=== PATIENT | female | born 1940 | race Caucasian/White ===

== ENCOUNTER 2018-01-09 15:57 | Observation (INO) | payer OTHER, MEDICAID ==
[2018-01-09] VITALS (14 sets, daily range): BP systolic 99–134; BP diastolic 54–85; PULSE 58–154; RESP 16–30; TEMP 98.5–98.9; O2SAT 80–99
[~2018-01-09] VITALS: Ht 152.4 cm; Wt 67.3 kg
[~2018-01-09 15:57] MED LIST: AMLO5TAB22 PO; ASPI81TA11 PO; BUSP5TAB3 PO; CARV3.12 PO; CITA20TA4 PO; DIGO50SO PO; EQUATE; HYZA100T2 PO; LEVO.15 PO; OXYC-360 PO; PRIL10CA PO; VITA400C28 PO
[2018-01-09] MEDS ORDERED: DILTIAZEM HCL 25 MG/5 ML VIAL IV ONE ×2 (16:30→18:45)
[2018-01-09 16:31] LABS: AUTOMATED NEUTROPHIL # 3.2 TH/MM3 (1.8-7.7); BASOPHIL # 0.1 TH/MM3 (0-0.2); EOSINOPHIL # 0.2 TH/MM3 (0-0.4); EOSINOPHIL % 3.4 % (0.0-4.0); HEMATOCRIT 32.3 % (35.0-46.0); HEMOGLOBIN 10.2 GM/DL (11.6-15.3); LYMPH % 23.6 % (9.0-44.0); LYMPHOCYTE # 1.2 TH/MM3 (1.0-4.8); MEAN CELL VOLUME 75.4 FL (80.0-100.0); MEAN CORPUSCULAR HEMOGLOBIN 23.9 PG (27.0-34.0); MEAN CORPUSCULAR HGB CONC 31.6 % (32.0-36.0); MEAN PLATELET VOLUME 8.8 FL (7.0-11.0); MONO % 7.4 % (0.0-8.0); MONOCYTE # 0.4 TH/MM3 (0-0.9); NEUT % 64.6 % (16.0-70.0); PLATELET COUNT 98 TH/MM3 (150-450); RED BLOOD COUNT 4.28 MIL/MM3 (4.00-5.30); RED CELL DISTRIBUTION WIDTH 15.2 % (11.6-17.2); WHITE BLOOD COUNT 5.1 TH/MM3 (4.0-11.0)
[2018-01-09 16:43] LABS: CHLORIDE 102 MEQ/L (98-107); SODIUM (NA) 135 MEQ/L (136-145)
[2018-01-09 16:45] LABS: INTERNATIONAL NORMALIZED RATIO 1.1 RATIO; PROTHROMBIN TIME - PATIENT 11.3 SEC (9.8-11.6)
--- NOTE | 2018-01-09 16:45 | RADRPT ---
EXAM DATE/TIME: 01/09/2018 16:29 [place] COMPARISON: CHEST SINGLE AP, May 30, 2016, 19:24. INDICATIONS : Heart palpitations. MEDICAL HISTORY : Hypertension. Chronic obstructive pulmonary disease. SURGICAL HISTORY : None. ENCOUNTER: Initial ACUITY: 3 days PAIN SCORE: 0/10 LOCATION: Bilateral chest FINDINGS: A single view of the chest demonstrates the lungs to be hyperinflated with stable pleural-parenchymal scarring laterally and inferiorly in the left hemithorax. Old fracture deformities in the left poste rolateral ribs. Osseous structures are otherwise intact. Heart size is normal. CONCLUSION: 1. Stable hyperinflation characteristic of some degree of COPD. 2. Stable pleural parenchymal scarring laterally and inferiorly in the left hemithorax. No superimpos ed acute infiltrate. Renaldo Felton MD on January 09, 2018 at 16:42 Board Certified Radiologist. This report was verified electronically.
[2018-01-09 16:46] LABS: ALBUMIN 3.6 GM/DL (3.4-5.0); BICARBONATE 25.9 MEQ/L (21.0-32.0); GLUCOSE,RANDOM 89 MG/DL (74-106)
[2018-01-09 16:47] LABS: BLOOD UREA NITROGEN 15 MG/DL (7-18)
[2018-01-09 16:49] LABS: ALT (GPT) 14 U/L (10-53); AST (GOT) 15 U/L (15-37)
[2018-01-09] MEDS: SODIUM CHLORIDE 0.9% FLUSH 10 ML FLUSH IVF PRN ×3 (16:49→18:50)
[2018-01-09 16:50] LABS: GLOMERULAR FILTRATION RATE 48 ML/MIN (>89)
[2018-01-09 16:51] LABS: TOTAL BILIRUBIN ADULT 0.2 MG/DL (0.2-1.0); TOTAL PROTEIN 8.2 GM/DL (6.4-8.2)
[2018-01-09 16:52] LABS: ALKALINE PHOSPHATASE 85 U/L (45-117)
[2018-01-09 16:55] LABS: TROPONIN I LESS THAN 0.02 NG/ML (0.02-0.05)
[2018-01-09] MEDS ORDERED: ASPI81TA23 PO (17:12)
[2018-01-09] MEDS ORDERED: LEVO150T7 PO (17:12)
[2018-01-09] MEDS ORDERED: AMLO5TAB2 PO (17:12)
[2018-01-09] MEDS ORDERED: DIGO0.25 PO (17:12)
[2018-01-09] MEDS ORDERED: CARV3.12 PO (17:12)
[2018-01-09] MEDS ORDERED: TRAM50TA PO (17:13)
[2018-01-09] MEDS ORDERED: CITA20TA4 PO (17:15)
[2018-01-09] MEDS ORDERED: HYZA100T2 PO (17:15)
[2018-01-09] MEDS ORDERED: OMEP20TA93 PO (17:15)
[2018-01-09] MEDS ORDERED: VITATAB56 PO (17:17)
[2018-01-09] MEDS ORDERED: DILTIAZEM HCL 25 MG/5 ML VIAL IV PUSH ONE (17:45)
[2018-01-09] MEDS ORDERED: DILTIAZEM INJ 125 MG in SODIUM CHLORIDE 0.9% INJ 100 ML IV PRN (17:45)
--- NOTE | 2018-01-09 18:04 | PD ---
HPI Chief Complaint: Cardiac Complaint Time Seen by Provider: 16:02 Travel History International Travel<30 days: No Contact w/Intl Traveler<30days: No Traveled to known affect area: No History of Present Illness HPI Patient is a 77 year old female presents to the ER for evaluation of tachycardia. She has no complaints. Patient states went for a checkup with a regular physician and found to have heart rate of 140. Her physician sent her here for further evaluation. Duration of the symptoms is unknown. no associated palpitations, sob, chest pain, n/v/d, abdominal pain. No alleviating or exacerbating factors. Has seen Dr. Goff once in the past , has history of atrial fibrillation, on digoxin, states has been taking her medications as prescribed. PFSH Past Medical History Arthritis: Yes (RHEUMATOID) Asthma: No Atrial Fibrillation: Yes Blood Disorders: No Anxiety: Yes Depression: No Heart Rhythm Problems: Yes (afib) Cancer: Yes (UTERINE) Cardiovascular Problems: Yes (cardiac arrest 2005) High Cholesterol: Yes Chemotherapy: No Chest Pain: No Congestive Heart Failure: No Cirrhosis: Yes COPD: Yes Cerebrovascular Accident: No Coronary Artery Disease: Yes Diabetes: No Endocrine: Yes Gastrointestinal Disorders: Yes ("LIVER DAMAGE FROM VIRUS") GERD: Yes Genitourinary: No Headaches: Yes Hiatal Hernia: No Hypertension: Yes Immune Disorder: No Musculoskeletal: Yes (SCIATICA) Neurologic: Yes (SCIATIC NERVE PAIN ON LEFT) Psychiatric: Yes Reproductive: Yes (HYSTERECTOMY) Respiratory: Yes Immunizations Current: Yes Migraines: No Myocardial Infarction: Yes Radiation Therapy: No Seizures: No Sleep Apnea: Yes Thyroid Disease: Yes Ulcer: Yes Tetanus Vaccination: > 5 Years Influenza Vaccination: No ?: Not Menopausal: Yes : 0 Para: 0 Past Surgical History AICD: No Arteriovenous Shunt: No Cholecystectomy: Yes Gynecologic Surgery: Yes (UTERINE CANCER/HYSTERECTOMY 2005) Hysterectomy: Yes Insulin Pump: No Joint Replacement: No Oral Surgery: Yes (TOOTH EXTRACTIONS AGE 23) Pacemaker: No Other Surgery: Yes Social History Alcohol Use: No (OCCASSIONAL) Tobacco Use: No (quit 15 yrs ago) Substance Use: No Allergies-Medications (Allergen,Severity, Reaction): Coded Allergies: aspirin (Unverified Allergy, Severe, 07/16/17) Reported Meds & Prescriptions Reported Meds & Active Scripts Active Reported Vitamin D-400 (Cholecalciferol) 400 Unit Tab 400 Units PO DAILY Hyzaar (Losartan-Hydrochlorothiazide) 100-12.5 Mg Tab 1 Tab PO DAILY Citalopram (Citalopram Hydrobromide) 20 Mg Tab 20 Mg PO DAILY Omeprazole 20 Mg Tab 20 Mg PO DAILY Tramadol (Tramadol HCl) 50 Mg Tab 100 Mg PO Q6H PRN Carvedilol 3.125 Mg Tab 3.125 Mg PO BID Digoxin 0.25 Mg Tab 0.25 Mg PO DAILY Amlodipine (Amlodipine Besylate) 5 Mg Tab 5 Mg PO DAILY Levothyroxine (Levothyroxine Sodium) 150 Mcg Tab 150 Mcg PO DAILY Aspirin EC (Aspirin) 81 Mg Tabdr 81 Mg PO DAILY Review of Systems Except as stated in HPI: all other systems reviewed are Neg Physical Exam Narrative GENERAL: WD/WN in nad SKIN: Warm and dry. HEAD: Atraumatic. Normocephalic. EYES: Pupils equal and round. No scleral icterus. No injection or drainage. ENT: No nasal bleeding or discharge. Mucous membranes pink and moist. NECK: Trachea midline. No JVD. CARDIOVASCULAR: Regular rate and rhythm but tachycardic. No carotid bruits, no MGR. RESPIRATORY: No accessory muscle use. Clear to auscultation. Breath sounds equal bilaterally. GASTROINTESTINAL: Abdomen soft, non-tender, nondistended. Hepatic and splenic margins not palpable. MUSCULOSKELETAL: Extremities without clubbing, cyanosis, or edema. No obvious deformities. NEUROLOGICAL: Awake and alert. No obvious cranial nerve deficits. Motor grossly within normal limits. Five out of 5 muscle strength in the arms and legs. Normal speech. PSYCHIATRIC: Appropriate mood and affect; insight and judgment normal. Data Data Last Documented VS Vital Signs Date Time Temp Pulse Resp B/P (MAP) Pulse Ox O2 Delivery O2 Flow Rate FiO2 01/09/18 19:47 86 18 128/65 (86) 97 Room Air 01/09/18 16:53 3.00 01/09/18 16:32 98.5 Orders Orders Electrocardiogram (01/09/18 16:03) Complete Blood Count With Diff (01/09/18 16:03) Comprehensive Metabolic Panel (01/09/18 16:03) Magnesium (Mg) (01/09/18 16:03) Prothrombin Time / Inr (Pt) (01/09/18 16:03) Act Partial Throm Time (Ptt) (01/09/18 16:03) Troponin I (01/09/18 16:03) Chest, Single Ap (01/09/18 16:03) Ecg Monitoring (01/09/18 16:03) Iv Access Insert/Monitor (01/09/18 16:03) Oximetry (01/09/18 16:03) Oxygen Administration (01/09/18 16:03) Sodium Chloride 0.9% Flush (Ns Flush) (01/09/18 16:15) Thyroid Stimulating Hormone (01/09/18 16:03) Free T3 (01/09/18 16:03) Free Thyroxine (T4) (01/09/18 16:03) Digoxin (01/09/18 16:24) Diltiazem Inj (Cardizem Inj) (01/09/18 16:30) Electrocardiogram (01/09/18 ) Diltiazem Inj (Cardizem Inj) (01/09/18 17:45) Diltiazem Inj (Cardizem Inj) (01/09/18 17:45) Diltiazem Inj (Cardizem Inj) (01/09/18 18:45) Admit Order (Ed Use Only) (01/09/18 ) Place In Observation (01/09/18 ) Vital Signs (Adult) Q4H (01/09/18 20:01) Activity Oob With Assistance (01/09/18 20:01) Retort Feeder Ground Bone / Telemetry .CONTINUOUS (01/09/18 20:01) Diet Heart Healthy (01/10/18 Breakfast) Sodium Chloride 0.9% Flush (Ns Flush) (01/09/18 20:15) Sodium Chloride 0.9% Flush (Ns Flush) (01/09/18 21:00) Acetaminophen (Tylenol) (01/09/18 20:15) Ondansetron Inj (Zofran Inj) (01/09/18 20:15) Basic Metabolic Panel (Bmp) (01/10/18 06:00) Comprehensive Metabolic Panel (01/10/18 06:00) Heparin Inj (Heparin Inj) (01/09/18 21:00) Naloxone Inj (Narcan Inj) (01/09/18 20:15) Docusate Sodium-Senna (Hailey-Colace) (01/09/18 21:00) Magnesium Hydroxide Liq (Milk Of Magnesi (01/09/18 20:15) Sennosides (Senokot) (01/09/18 20:15) Bisacodyl Supp (Dulcolax Supp) (01/09/18 20:15) Lactulose Liq (Lactulose Liq) (01/09/18 20:15) Consult Cardiology (01/09/18 ) Labs Laboratory Tests Test 01/09/18 16:15 White Blood Count 5.1 TH/MM3 Red Blood Count 4.28 MIL/MM3 Hemoglobin 10.2 GM/DL Hematocrit 32.3 % Mean Corpuscular Volume 75.4 FL Mean Corpuscular Hemoglobin 23.9 PG Mean Corpuscular Hemoglobin Concent 31.6 % Red Cell Distribution Width 15.2 % Platelet Count 98 TH/MM3 Mean Platelet Volume 8.8 FL Neutrophils (%) (Auto) 64.6 % Lymphocytes (%) (Auto) 23.6 % Monocytes (%) (Auto) 7.4 % Eosinophils (%) (Auto) 3.4 % Basophils (%) (Auto) 1.0 % Neutrophils # (Auto) 3.2 TH/MM3 Lymphocytes # (Auto) 1.2 TH/MM3 Monocytes # (Auto) 0.4 TH/MM3 Eosinophils # (Auto) 0.2 TH/MM3 Basophils # (Auto) 0.1 TH/MM3 CBC Comment AUTO DIFF Differential Comment AUTO DIFF CONFIRMED Platelet Estimate LOW Platelet Morphology Comment NORMAL Prothrombin Time 11.3 SEC Prothromb Time International Ratio 1.1 RATIO Activated Partial Thromboplast Time 28.8 SEC Blood Urea Nitrogen 15 MG/DL Creatinine 1.10 MG/DL Random Glucose 89 MG/DL Total Protein 8.2 GM/DL Albumin 3.6 GM/DL Calcium Level 9.0 MG/DL Magnesium Level 2.0 MG/DL Alkaline Phosphatase 85 U/L Aspartate Amino Transf (AST/SGOT) 15 U/L Alanine Aminotransferase (ALT/SGPT) 14 U/L Total Bilirubin 0.2 MG/DL Sodium Level 135 MEQ/L Potassium Level 3.8 MEQ/L Chloride Level 102 MEQ/L Carbon Dioxide Level 25.9 MEQ/L Anion Gap 7 MEQ/L Estimat Glomerular Filtration Rate 48 ML/MIN Troponin I LESS THAN 0.02 NG/ML Free Thyroxine 1.37 NG/DL Free Triiodothyronine (T3) pg/dL 2.69 PG/ML Thyroid Stimulating Hormone 3rd Gen 0.229 uIU/ML Digoxin Level 1.1 NG/ML MDM Medical Decision Making Medical Screen Exam Complete: Yes Emergency Medical Condition: Yes Differential Diagnosis Atrial fibrillation, CHF unlikely, ACS unlikely, hyperthyroidism, digoxin toxicity, atrial flutter. Narrative Course patient roomed in the ER, asymptomatic she is in 2:1 atrial flutter at 145-150. Cardizem 20mg Bolus given, rate more controlled. EKG repeated shows atrial fibrillation and no STT changes (reviewed by me). Over the next hour, her rate graeme back to 140 in atrial flutter once again, she then had a short spontaneous conversion to NSR and then back to 2:1 atrial flutter. Cardizem drip started and then later given an additional 20mg Cardizem bolus given and her rate was again better controlled. At this point needing better rate control to prevent CHF and complication she was recommended for admission. She is agreeable. She was discussed with Dr. Albarado for admission. Digoxin level non-toxic. Thyroid levels euthyroid. Procedures Procedure Narrative Aggregate critical care time was 35 minutes. Time to perform other separately billable procedures was not included in the critical care time. My time did not include minutes spent treating any other patients simultaneously or on activities that did not directly contribute to the patient's treatment. The services I provided to this patient were to treat and/or prevent clinically significant deterioration that could result in: , disability, organ failure. I provided critical care services requiring my management, as noted below: Chart data review, documentation time, medication orders and management, vital sign assessments/reviewing monitor data, ordering and reviewing lab tests, ordering and interpreting/reviewing x-rays and diagnostic studies, care of the patient and discussion of the patient with the admitting physicians. Diagnosis Primary Impression: Atrial fibrillation Additional Impression: Atrial fibrillation with RVR Admitting Information Admitting Physician Requests: Admit Condition: Stable Jones Samano MD Jan 09, 2018 18:04
[2018-01-09 18:06] LABS: FREE T3 2.69 PG/ML (2.18-3.98); FREE T4 1.37 NG/DL (0.76-1.46)
[2018-01-09] MEDS ORDERED: BISACODYL 10 MG SUPP RECTAL PRN (20:15)
[2018-01-09] MEDS ORDERED: SODIUM CHLORIDE 0.9% FLUSH 10 ML FLUSH IV FLUSH PRN (20:15)
[2018-01-09] MEDS ORDERED: ONDANSETRON HCL 4 MG/2 ML VIAL IVP PRN (20:15)
[2018-01-09] MEDS ORDERED: LACTULOSE SYRUP 20 GM/30 ML CUP PO PRN (20:15)
[2018-01-09] MEDS ORDERED: MAGNESIUM HYDROXIDE SUSP 30 ML CUP PO PRN (20:15)
[2018-01-09] MEDS ORDERED: NALOXONE HCL 0.4 MG/ML AMP IV PUSH PRN (20:15)
[2018-01-09] MEDS ORDERED: ACETAMINOPHEN 325 MG TAB PO PRN (20:15)
[2018-01-09] MEDS ORDERED: SENNOSIDES 8.6 MG TAB PO PRN (20:15)
[2018-01-09] MEDS: SODIUM CHLORIDE 0.9% FLUSH 10 ML FLUSH IV FLUSH SCH (20:51)
[2018-01-09] MEDS ORDERED: CARVEDILOL 3.125 MG TAB PO SCH (21:00)
[2018-01-09] MEDS: DOCUSATE SODIUM 50 MG/SENNA 8.6 MG TAB PO SCH (22:55)
[2018-01-09] MEDS: HEPARIN SODIUM - SQ 10,000 UNITS/ML VIAL SQ SCH (22:56)
[2018-01-10] VITALS (18 sets, daily range): BP systolic 108–131; BP diastolic 48–78; PULSE 52–158; RESP 12–33; TEMP 98.1–98.5; O2SAT 95–100
[2018-01-10 05:11] LABS: CHLORIDE 102 MEQ/L (98-107); SODIUM (NA) 137 MEQ/L (136-145)
[2018-01-10 05:15] LABS: ALBUMIN 3.2 GM/DL (3.4-5.0); BICARBONATE 28.7 MEQ/L (21.0-32.0); BLOOD UREA NITROGEN 16 MG/DL (7-18); CALCIUM 8.5 MG/DL (8.5-10.1); GLUCOSE,RANDOM 99 MG/DL (74-106)
[2018-01-10 05:18] LABS: ALT (GPT) 11 U/L (10-53); AST (GOT) 15 U/L (15-37)
[2018-01-10 05:19] LABS: GLOMERULAR FILTRATION RATE 48 ML/MIN (>89)
[2018-01-10 05:20] LABS: TOTAL BILIRUBIN ADULT 0.5 MG/DL (0.2-1.0); TOTAL PROTEIN 7.2 GM/DL (6.4-8.2)
[2018-01-10 05:21] LABS: ALKALINE PHOSPHATASE 78 U/L (45-117)
[2018-01-10] MEDS ORDERED: LEVOTHYROXINE SODIUM 150 MCG TAB PO SCH (06:00)
[2018-01-10] MEDS ORDERED: DILTIAZEM INJ 125 MG in SODIUM CHLORIDE 0.9% INJ 100 ML IV PRN (07:00)
[2018-01-10] MEDS: HEPARIN SODIUM - SQ 10,000 UNITS/ML VIAL SQ SCH ×2 (07:46→20:08)
[2018-01-10] MEDS: DOCUSATE SODIUM 50 MG/SENNA 8.6 MG TAB PO SCH ×2 (07:46→20:07)
[2018-01-10] MEDS: HYDROCHLOROTHIAZIDE 12.5 MG CAP PO SCH (07:47)
[2018-01-10] MEDS: LOSARTAN 50 MG TAB PO SCH (07:48)
[2018-01-10] MEDS: ASPIRIN EC 81 MG TABEC PO SCH (07:48)
[2018-01-10] MEDS: SODIUM CHLORIDE 0.9% FLUSH 10 ML FLUSH IV FLUSH SCH ×2 (07:51→20:07)
[2018-01-10] MEDS ORDERED: DILTIAZEM-CD 120 MG CAP ER PO ONE (08:00)
[2018-01-10] MEDS ORDERED: DIGOXIN 0.25 MG TAB PO SCH (09:00)
[2018-01-10] MEDS ORDERED: amLODIPine BESYLATE 5 MG TAB PO SCH (09:00)
--- NOTE | 2018-01-10 09:08 | HHI.HP ---
HPI Service [facility] Primary Care Physician Alma Delia Marley Do, MD Admission Diagnosis Afib/RVR Diagnoses: (1) Atrial fibrillation with RVR Chief Complaint: Tachycardia Travel History International Travel<30 Days: No Contact w/Intl Traveler <30 Da: No Traveled to Known Affected Are: No History of Present Illness Written by Huyen Rosales, acting as scribe for Dr. Joy on 01/10/18 at 09:08. This is a pleasant 77-year-old female patient with a known medical history of rheumatoid arthritis, atrial fibrillation, hyperlipidemia and COPD who presented to the ED after evaluation at her PCP with a heart rate of 140. Patient states she went for her checkup and had no complaints or symptoms when her PCP checked her heart rate and it was 140. She states she's been in her relatively healthy state. Denies any illness cutting fever, chills, cough, abdominal pain, nausea, vomiting, diarrhea or dysuria. Denies any chest pain or palpitations. Patient states she is followed with Dr. Sewell in the past for history of atrial fibrillation, just saw her a few months ago with no changes in medicines. Patient's PCP is Dr. Marley. Review of Systems Constitutional: DENIES: Fatigue, Fever, Chills Eyes: DENIES: Blurred vision, Diplopia Respiratory: DENIES: Cough, Sputum production, Shortness of breath Cardiovascular: DENIES: Chest pain, Palpitations Gastrointestinal: DENIES: Abdominal pain, Black stools, Constipation, Diarrhea , Nausea, Vomiting Musculoskeletal: DENIES: Joint pain Hematologic/lymphatic: DENIES: Bruising Immunologic/allergic: DENIES: Eczema Neurologic: DENIES: Abnormal gait Psychiatric: DENIES: Anxiety Except as stated in HPI: all other systems reviewed are Neg Past Family Social History Past Medical History CAD COPD Hyperlipidemia Hearing cancer with hysterectomy Atrial fibrillation Anxiety Rheumatoid arthritis Past Surgical History Hysterectomy secondary to uterine cancer Cholecystectomy Tooth extractions Reported Medications Active Reported Vitamin D-400 (Cholecalciferol) 400 Unit Tab 400 Units PO DAILY Hyzaar (Losartan-Hydrochlorothiazide) 100-12.5 Mg Tab 1 Tab PO DAILY Citalopram (Citalopram Hydrobromide) 20 Mg Tab 20 Mg PO DAILY Omeprazole 20 Mg Tab 20 Mg PO DAILY Tramadol (Tramadol HCl) 50 Mg Tab 100 Mg PO Q6H PRN Carvedilol 3.125 Mg Tab 3.125 Mg PO BID Digoxin 0.25 Mg Tab 0.25 Mg PO DAILY Amlodipine (Amlodipine Besylate) 5 Mg Tab 5 Mg PO DAILY Levothyroxine (Levothyroxine Sodium) 150 Mcg Tab 150 Mcg PO DAILY Aspirin EC (Aspirin) 81 Mg Tabdr 81 Mg PO DAILY Allergies: Coded Allergies: aspirin (Unverified Allergy, Severe, 07/16/17) Active Ordered Medications Current Medications Medications (Trade) Dose Ordered Sig/Mic Route Start Time Stop Time Status Last Admin (NS Flush) 2 ml UNSCH PRN IV FLUSH 01/09/18 20:15 (NS Flush) 2 ml BID IV FLUSH 01/09/18 21:00 01/10/18 07:51 (Tylenol) 650 mg Q4H PRN PO 01/09/18 20:15 (Zofran Inj) 4 mg Q6H PRN IVP 01/09/18 20:15 (Heparin Inj) 5,000 units Q12HR SQ 01/09/18 21:00 01/10/18 07:46 (Narcan Inj) 0.4 mg UNSCH PRN IV PUSH 01/09/18 20:15 (Hailey-Colace) 1 tab BID PO 01/09/18 21:00 01/09/18 22:55 (Milk Of Magnesia Liq) 30 ml Q12H PRN PO 01/09/18 20:15 (Senokot) 17.2 mg Q12H PRN PO 01/09/18 20:15 (Dulcolax Supp) 10 mg DAILY PRN RECTAL 01/09/18 20:15 (Lactulose Liq) 30 ml DAILY PRN PO 01/09/18 20:15 (Ecotrin Ec) 81 mg DAILY PO 01/10/18 09:00 01/10/18 07:48 (Cozaar) 100 mg DAILY PO 01/10/18 09:00 01/10/18 07:48 (Microzide) 12.5 mg DAILY PO 01/10/18 09:00 01/10/18 07:47 (Cardizem Cd) 120 mg DAILY PO 01/11/18 09:00 (Vitamin D3) 400 units DAILY PO 01/11/18 09:00 (CeleXA) 20 mg DAILY PO 01/11/18 09:00 (Protonix) 20 mg DAILY PO 01/11/18 09:00 (Benadryl) 50 mg HS PRN PO 01/10/18 10:45 (Synthroid) 125 mcg DAILY@0600 PO 01/11/18 06:00 Family History Paternal medical history significant for cardiomegaly. Social History Denies any current tobacco use, quit five years ago. Denies any alcohol or illicit drug use. Physical Exam Vital Signs Vital Signs Date Time Temp Pulse Resp B/P (MAP) Pulse Ox O2 Delivery O2 Flow Rate FiO2 01/10/18 08:00 56 01/10/18 08:00 98.1 56 19 126/54 (78) 01/10/18 04:00 98.3 52 13 108/50 (69) 95 01/10/18 03:55 52 115/51 01/10/18 03:00 54 12 110/57 (74) 01/10/18 02:00 86 14 110/48 (68) 01/10/18 01:23 62 16 111/56 (74) 01/10/18 01:00 88 14 115/58 (77) 01/10/18 00:54 54 01/10/18 00:54 58 120/59 01/10/18 00:00 98.3 116 15 122/59 (80) 96 01/09/18 23:00 96 30 01/09/18 22:45 154 124/68 01/09/18 22:45 154 24 124/68 (86) 01/09/18 22:45 154 01/09/18 22:00 60 01/09/18 22:00 58 23 01/09/18 22:00 58 134/67 01/09/18 21:59 98.9 60 26 134/67 (89) 95 01/09/18 21:54 74 18 97 01/09/18 21:37 62 18 125/59 (81) 98 Room Air 01/09/18 20:52 70 18 120/56 (77) 97 Room Air 01/09/18 19:47 86 18 128/65 (86) 97 Room Air 01/09/18 19:03 81 16 113/62 (79) 96 Room Air 01/09/18 18:59 92 16 97 Room Air 01/09/18 18:55 75 16 102/55 (71) 80 Room Air 01/09/18 18:00 109 16 120/65 (83) 97 01/09/18 17:57 150 130/70 01/09/18 17:30 118 16 132/85 (101) 97 Room Air 01/09/18 16:53 84 16 99/54 (69) 99 Nasal Cannula 3.00 01/09/18 16:39 16 98 Room Air 01/09/18 16:38 98 Nasal Cannula 3.00 01/09/18 16:35 76 16 97 Room Air 01/09/18 16:32 98.5 134 18 123/81 (95) 98 Physical Exam GENERAL: Well-nourished, well-developed patient in NAD. SKIN: Warm and dry. No rash. HEAD: Normocephalic. Atraumatic. EYES: Pupils equal and round. No scleral icterus. No injection or drainage. ENT: No nasal bleeding or discharge. Mucous membranes pink and moist. NECK: Supple. Trachea midline. CARDIOVASCULAR: Regular rate and rhythm. S1, S2 noted. No murmur appreciated. RESPIRATORY: No accessory muscle use. Clear to auscultation. Breath sounds equal bilaterally. GASTROINTESTINAL: Abdomen soft, non-tender, nondistended. Normoactive bowel sounds x4. MUSCULOSKELETAL: No obvious deformities. Extremities without clubbing, cyanosis , or edema. NEUROLOGICAL: Awake and alert. No obvious cranial nerve deficits. Motor grossly within normal limits. 5/5 muscle strength in bilateral upper and lower extremities. Normal speech. PSYCHIATRIC: Appropriate mood and affect; insight and judgment normal. Laboratory Laboratory Tests Test 01/09/18 16:15 01/10/18 04:45 White Blood Count 5.1 Red Blood Count 4.28 Hemoglobin 10.2 Hematocrit 32.3 Mean Corpuscular Volume 75.4 Mean Corpuscular Hemoglobin 23.9 Mean Corpuscular Hemoglobin Concent 31.6 Red Cell Distribution Width 15.2 Platelet Count 98 Mean Platelet Volume 8.8 Neutrophils (%) (Auto) 64.6 Lymphocytes (%) (Auto) 23.6 Monocytes (%) (Auto) 7.4 Eosinophils (%) (Auto) 3.4 Basophils (%) (Auto) 1.0 Neutrophils # (Auto) 3.2 Lymphocytes # (Auto) 1.2 Monocytes # (Auto) 0.4 Eosinophils # (Auto) 0.2 Basophils # (Auto) 0.1 CBC Comment AUTO DIFF Differential Comment AUTO DIFF CONFIRMED Platelet Estimate LOW Platelet Morphology Comment NORMAL Prothrombin Time 11.3 Prothromb Time International Ratio 1.1 Activated Partial Thromboplast Time 28.8 Blood Urea Nitrogen 15 16 Creatinine 1.10 1.10 Random Glucose 89 99 Total Protein 8.2 7.2 Albumin 3.6 3.2 Calcium Level 9.0 8.5 Magnesium Level 2.0 Alkaline Phosphatase 85 78 Aspartate Amino Transf (AST/SGOT) 15 15 Alanine Aminotransferase (ALT/SGPT) 14 11 Total Bilirubin 0.2 0.5 Sodium Level 135 137 Potassium Level 3.8 3.6 Chloride Level 102 102 Carbon Dioxide Level 25.9 28.7 Anion Gap 7 6 Estimat Glomerular Filtration Rate 48 48 Troponin I LESS THAN 0.02 Free Thyroxine 1.37 Free Triiodothyronine (T3) pg/dL 2.69 Thyroid Stimulating Hormone 3rd Gen 0.229 Digoxin Level 1.1 Result Diagram: 01/09/18 1615 01/10/18 0445 Imaging Last Impressions Chest X-Ray 01/09/18 1603 Signed Impressions: Service Date/Time: January 16:29 - CONCLUSION: 1. Stable hyperinflation characteristic of some degree of COPD. 2. Stable pleural parenchymal scarring laterally and inferiorly in the left hemithorax. No superimposed acute infiltrate. Renaldo Felton MD Septic Shock Reassessment Septic shock perfusion: reassessment completed Caprini VTE Risk Assessment Caprini VTE Risk Assessment: Mod/High Risk (score >= 2) Caprini Risk Assessment Model Point Value = 1 Point Value = 2 Point Value = 3 Point Value = 5 Age 41-60 Minor surgery BMI > 25 kg/m2 Swollen legs Varicose veins or History of unexplained or recurrent spontaneous Oral contraceptives or hormone replacement Sepsis (< 1 month) Serious lung disease, including pneumonia (< 1 month) Abnormal pulmonary function Acute myocardial infarction Congestive heart failure (< 1 month) History of inflammatory bowel disease Medical patient at bed rest Age 61-74 Arthroscopic surgery Major open surgery (> 45 min) Laparoscopic surgery (> 45 min) Malignancy Confined to bed (> 72 hours) Immobilizing plaster cast Central venous access Age >= 75 History of VTE Family history of VTE Factor V Leiden Prothrombin [id number] Lupus anticoagulant Anticardiolipin antibodies Elevated serum homocysteine Heparin-induced thrombocytopenia Other congenital or acquired thrombophilia Stroke (< 1 month) Elective arthroplasty Hip, pelvis, or leg fracture Acute spinal cord injury (< 1 month) Prophylaxis Regimen Total Risk Factor Score Risk Level Prophylaxis Regimen 0-1 Low Early ambulation 2 Moderate Order ONE of the following: *Sequential Compression Device (SCD) *Heparin 5000 units SQ BID 3-4 Higher Order ONE of the following medications: *Heparin 5000 units SQ TID *Enoxaparin/Lovenox 40 mg SQ daily (WT < 150 kg, CrCl > 30 mL/min) *Enoxaparin/Lovenox 30 mg SQ daily (WT < 150 kg, CrCl > 10-29 mL/min) *Enoxaparin/Lovenox 30 mg SQ BID (WT < 150 kg, CrCl > 30 mL/min) AND/OR *Sequential Compression Device (SCD) 5 or more Highest Order ONE of the following medications: *Heparin 5000 units SQ TID (Preferred with Epidurals) *Enoxaparin/Lovenox 40 mg SQ daily (WT < 150 kg, CrCl > 30 mL/min) *Enoxaparin/Lovenox 30 mg SQ daily (WT < 150 kg, CrCl > 10-29 mL/min) *Enoxaparin/Lovenox 30 mg SQ BID (WT < 150 kg, CrCl > 30 mL/min) AND *Sequential Compression Device (SCD) Assessment and Plan Problem List: (1) Atrial fibrillation with RVR ICD Code: I48.91 - Unspecified atrial fibrillation Status: Acute Plan: Patient presented with rapid atrial flutter. Was placed on Cardizem IV drip. Now on Cardizem PO. Heart rate is now controlled, sinus rhythm at this time. Was seen by Dr. Mejia this morning. Denies any palpitations or chest pain. Will check a lipid panel, TSH and hemoglobin A1c. Follow. Continue cardiac telemetry, monitor for any arrhythmias. Cardiology has discontinued amlodipine, carvedilol and decreased her digoxin dose. Patient supposedly has a history of atrial fibrillation and not currently on anticoagulation. Patient just takes a low-dose aspirin. She has a history of GI bleed although has been a couple years. May consider anticoagulation. Heparin for now. (2) Hypothyroidism ICD Code: E03.9 - Hypothyroidism, unspecified Status: Acute Plan: TSH low. Will hold the levothyroxine dose today. (3) Hypertension ICD Code: I10 - Essential (primary) hypertension Plan: Continue home medications. Monitor BP trends. DVT prophylaxis: SCDs. Heparin. Assessment and Plan The exam, history, and the medical decision-making described in the above note were completed with the assistance of the mid-level provider. I reviewed and agree with the findings presented. I attest that I had a [id number] encounter with the patient on the same day, and personally performed and documented my assessment and findings in the medical record. Discussed with patient and RESEARCH PROGRAM ASSISTANT in the room, patient examined. Agree with no anticoagulation by now, her [id number] Score is 3 needs anticoagulation by at this time sinus rhythm and not a good candidate for anticoagulation due to GI bleed history of, will leave this decision to floor care specialist, continue Aspirin by now. Code Status Full code. Discussed Condition With Patient and RESEARCH PROGRAM ASSISTANT. Huyen Rosales Jan 10, 2018 9:08 am Mac Velasquez MD Jan 10, 2018 1:51 pm
--- NOTE | 2018-01-10 09:48 | MB ---
cc: NIKOLAS HERNANDEZ,JUAN JOSE YOUSIF,LORRAINE Crain MD DATE OF CONSULTATION 01/10/2018 I have reviewed outside and office records. HISTORY OF PRESENT ILLNESS The patient is a 77-year-old woman I am seeing for atrial flutter. The patient does have a history of atrial fibrillation/flutter in the past. She has had a GI bleed in the past with some thrombocytopenia and it appears that she was not felt to be a good candidate for anticoagulation. The patient has absolutely no cardiopulmonary symptoms, but was noted to be tachycardiac by her PCP in sent to the emergency room. EKG showed atrial flutter with rapid response. The patient has been placed on intravenous diltiazem and has converted between sinus bradycardia and atrial flutter with a rapid response. PAST MEDICAL HISTORY 1. Hypertension 2. Hyperlipidemia 3. Hypothyroidism 4. Liver disease 5. Mild aortic stenosis with echocardiogram 05/18 showing normal LV function with a mean 10-mm gradient across the aortic Valve. 6. Mild thrombocytopenia 7. Paroxysmal ventricular tachycardia with torsades in 2006 in the setting of severe hypokalemia. 8. Anemia 9. Insomnia 10. Obesity 11. Sleep apnea 12. Uterine cancer with prior hysterectomy 13. Cholecystectomy 14. Bilateral cataracts ALLERGIES [employer] SOCIAL HISTORY She is , a former smoker and rarely drinks. FAMILY HISTORY Remarkable for father with heart disease at 49. REVIEW OF SYSTEMS Remarkable for being ulcer prone), losing some weight intentionally, joint and back pain and insomnia. PHYSICAL EXAM On exam, she is in sinus rhythm. She is an overweight woman afebrile, vital signs stable and resting comfortably. HEAD, EYES, EARS, NOSE, AND THROAT: There are no xanthelasma and oral pharyngeal mucosa normal. NECK: JVD normal. CARDIAC: S1-S2 with the 2/6 early peaking systolic ejection murmur at the base. CHEST: Without deformities and clear. ABDOMEN: With a scar, but benign. EXTREMITIES: Show no cyanosis, clubbing or edema. Pulses 2/2 throughout without bruits with 1 to 2+ pedal pulses. She is not ambulated. Chest x-ray shows hyperinflation with some pleural parenchymal scarring. EKG showed rapid atrial flutter on admission. CBC with a mild anemia at 32.3 hematocrit. Platelet count 98,000. PT/PTT normal. Potassium 3.6 and 3.8, creatinine 1.1, troponin negative. TSH level depressed at 0.229. Digoxin 1.1. MEDICATIONS The medication list is reviewed. PROBLEMS 1. Rapid atrial flutter 2. Mild aortic stenosis 3. Probable iatrogenic hyperthyroidism. 4. Hypertension 5. Hyperlipidemia 6. Mild aortic stenosis RECOMMENDATIONS 1. We will discontinue Carvedilol and decreased digoxin. 2. Start sustained release oral diltiazem. 3. Hold thyroid supplementation for now as this could be worsening her atrial flutter. 4. Discontinue amlodipine at the present time. 5. Low cholesterol/salt diet. 6. It is unclear why the patient is not on full anticoagulation. She has had a GI bleed with transfusion in the past, but I have not seen good documentation as to whether she is still bleeding risk. Certainly there is some GI risk from aspirin and this really should be evaluated as to whether she is an adequate candidate for anticoagulation as she has a number of risk factors to warrant it. 7. If the patient continues going between rapid atrial flutter and sinus bradycardia, she may be a candidate for atrial flutter/ablation, although the lack of anticoagulation is an issue. 8. One of my associates will follow tomorrow. Thank you this consultation. MD DELILAH Ugalde/RANDOLPH /6:41 AM /9:18 AM
[2018-01-10] MEDS ORDERED: INFLUENZA VIRUS VACCINE (QUADRIVALENT) 0.5 ML SYR IM ONE ×2 (10:00→12:15)
[2018-01-10] MEDS ORDERED: POTASSIUM CHLORIDE 20 MEQ CONTROLLED RELEASE TAB PO ONE (12:00)
[2018-01-10 13:42] LABS: CHOLESTEROL 154 MG/DL (120-200); TRIGLYCERIDES 407 MG/DL (42-150)
[2018-01-10 13:43] LABS: CHOLESTEROL/ HDL RATIO 5.51 RATIO; HDL CHOLESTEROL 27.9 MG/DL (40.0-60.0)
[2018-01-10] MEDS ORDERED: DILTIAZEM HCL 25 MG/5 ML VIAL IV ONE ×2 (14:00→20:15)
--- NOTE | 2018-01-10 15:37 | EKG ---
Date Performed: 01/09/2018 Time Performed: 16:39:18 PTAGE: 77 years EKG: ATRIAL FLUTTER/TACHYCARDIA WITH RAPID VENTRICULAR RESPONSE MARKED ST DEPRESSION, CONSIDER SUBENDOCARDIAL INJURY ABNORMAL ECG Compared to PREVIOUS TRACING , the atrial flutter with 2:1 conduction is new. There has been a fairly marked increase in the diffuse ST-T wave changes. Clinical correlation to exclude ischemia in the se tting of the tachycardia will be important. PREVIOUS TRACIN05/30/2016 19.38 DOCTOR: Ella Jaimes Interpretating Date/Time 01/10/2018 15:36:55
--- NOTE | 2018-01-10 15:39 | EKG ---
Date Performed: 01/09/2018 Time Performed: 17:00:08 PTAGE: 77 years EKG: ATRIAL FIBRILLATION WITH ABERRANT CONDUCTION OR VENTRICULAR PREMATURE COMPLEXES MODERATE IN TRAVENTRICULAR CONDUCTION DELAY NONSPECIFIC ST & T-WAVE ABNORMALITY ABNORMAL RHYTHM ECG Compared to PREVIOUS TRACING , the atrial flutter has degenerated to atrial fibrillation. There has b een an overall marked improvement in the nonspecific ST-T wave changes. Clinical correlation remains important to exclude myocardial ischemia associated with the tachycardia. PREVIOUS TRACIN 8 16.39 DOCTOR: Ella Jaimes Interpretating Date/Time 01/10/2018 15:38:12
[2018-01-10 16:10] LABS: HEMOGLOBIN A1C 5.4 % (4.3-6.0)
[2018-01-10] MEDS: diphenhydrAMINE HCL 50 MG CAP PO PRN (20:17)
[2018-01-11] VITALS (12 sets, daily range): BP systolic 96–141; BP diastolic 41–92; PULSE 54–148; RESP 16–36; TEMP 98.3–98.8; O2SAT 97–100
[2018-01-11] MEDS ORDERED: LEVOTHYROXINE SODIUM 125 MCG TAB PO SCH (06:00)
[2018-01-11] MEDS: HYDROCHLOROTHIAZIDE 12.5 MG CAP PO SCH (08:00)
[2018-01-11] MEDS: CITALOPRAM HYDROBROMIDE 20 MG TAB PO SCH (08:00)
[2018-01-11] MEDS: HEPARIN SODIUM - SQ 10,000 UNITS/ML VIAL SQ SCH ×2 (08:00→20:24)
[2018-01-11] MEDS: PANTOPRAZOLE SOD 20 MG DELAYED RELEASE TAB PO SCH (08:01)
[2018-01-11] MEDS: DOCUSATE SODIUM 50 MG/SENNA 8.6 MG TAB PO SCH ×2 (08:01→20:22)
[2018-01-11] MEDS: SODIUM CHLORIDE 0.9% FLUSH 10 ML FLUSH IV FLUSH SCH ×2 (08:01→20:23)
[2018-01-11] MEDS: LOSARTAN 50 MG TAB PO SCH (08:01)
[2018-01-11] MEDS: CHOLECALCIFEROL (VIT D3) 400 UNIT TAB PO SCH (08:01)
[2018-01-11] MEDS: DILTIAZEM-CD 120 MG CAP ER PO SCH (08:01)
[2018-01-11] MEDS: ASPIRIN EC 81 MG TABEC PO SCH (08:01)
[2018-01-11] MEDS: METOPROLOL SUCCINATE 25 MG EXTENDED RELEASE TAB PO SCH (09:36)
--- NOTE | 2018-01-11 11:04 | HHI.PR ---
Subjective Remarks Follow-up A. fib RVR. Patient seen and examined, sitting on side of bed. Heart rate is still labile, up into the 130s with activity. Patient is completely asymptomatic. Blood pressure stable. Afebrile overnight. Patient is eating and drinking, with no associated abdominal pain, nausea or vomiting. Denies any chest pain or palpitations. Continue cardiac telemetry. Required 10 mg IV push of Cardizem overnight. Objective Vitals Vital Signs Date Time Temp Pulse Resp B/P (MAP) Pulse Ox O2 Delivery O2 Flow Rate FiO2 01/11/18 08:00 127 01/11/18 07:54 98.6 64 16 141/62 (88) 01/11/18 04:00 98.6 62 16 106/41 (62) 01/11/18 00:00 61 01/11/18 00:00 98.5 64 22 123/51 (75) 100 01/10/18 20:20 64 23 123/59 (80) 01/10/18 20:18 76 01/10/18 20:17 72 01/10/18 20:12 156 24 123/70 (87) 01/10/18 20:00 98.3 158 33 131/78 (95) 100 01/10/18 20:00 157 01/10/18 16:00 98.5 58 30 108/48 (68) 96 01/10/18 15:00 60 01/10/18 14:00 78 01/10/18 13:22 144 01/10/18 12:00 98.5 58 19 124/69 (87) I/O 01/10/18 01/10/18 01/10/18 01/11/18 01/11/18 01/11/18 07:00 15:00 23:00 07:00 15:00 23:00 Intake Total 220 ml 68 ml 500 ml 220 ml Output Total 3 ml Balance 220 ml 68 ml 497 ml 220 ml Intake Oral 220 ml 500 ml 220 ml IV Total 68 ml Output Stool Total 3 ml # Voids 3 3 3 # Bowel Movements 0 0 Result Diagram: 01/09/18 1615 01/10/18 0445 Imaging Last Impressions Chest X-Ray 01/09/18 1603 Signed Impressions: Service Date/Time: January 16:29 - CONCLUSION: 1. Stable hyperinflation characteristic of some degree of COPD. 2. Stable pleural parenchymal scarring laterally and inferiorly in the left hemithorax. No superimposed acute infiltrate. Renaldo Felton MD Objective Remarks GENERAL: Well-nourished, well-developed patient in NAD. SKIN: Warm and dry. No rash. HEENT: Normocephalic. Atraumatic. Pupils equal and round. No scleral icterus. No injection or drainage. No nasal bleeding or discharge. Mucous membranes pink and moist. NECK: Supple. Trachea midline. CARDIOVASCULAR: Irregularly irregular rhythm. No murmur appreciated. RESPIRATORY: No accessory muscle use. Clear to auscultation. Breath sounds equal bilaterally. GASTROINTESTINAL: Abdomen soft, non-tender, nondistended. Normoactive bowel sounds x4. MUSCULOSKELETAL: No obvious deformities. Extremities without clubbing, cyanosis , or edema. NEUROLOGICAL: Awake and alert. No obvious cranial nerve deficits. Motor grossly within normal limits. 5/5 muscle strength in bilateral upper and lower extremities. Normal speech. PSYCHIATRIC: Appropriate mood and affect; insight and judgment normal. A/P Problem List: (1) Atrial fibrillation with RVR ICD Code: I48.91 - Unspecified atrial fibrillation Status: Acute Plan: Patient presented with rapid atrial flutter. Was placed on Cardizem IV drip. Now on Cardizem PO. Heart rate is labile overnight. Required Cardizem IV 1 overnight. Started on metoprolol low-dose scheduled. Continue to monitor on telemetry. Cardiology following. Denies any palpitations or chest pain. hemoglobin A1c 5.4. TSH low, levothyroxine on hold per cardiology. Lipid panel reviewed showing elevated triglycerides. Continue home Raptha. Continue cardiac telemetry, monitor for any arrhythmias. Cardiology has discontinued amlodipine, carvedilol and decreased her digoxin dose. Patient supposedly has a history of atrial fibrillation and not currently on anticoagulation. Patient just takes a low-dose aspirin. She has a history of GI bleed although has been a couple years. May consider anticoagulation. Heparin for now. (2) Hypothyroidism ICD Code: E03.9 - Hypothyroidism, unspecified Status: Acute Plan: TSH low. Will hold the levothyroxine for now per cardiology. (3) Hypertension ICD Code: I10 - Essential (primary) hypertension Plan: Continue home medications. Monitor BP trends. DVT prophylaxis: SCDs. Heparin. Huyen Rosales Jan 11, 2018 11:04
--- NOTE | 2018-01-11 19:17 | HHI.PR ---
Subjective Remarks Feeling fine Objective Vital Signs Date Time Temp Pulse Resp B/P (MAP) Pulse Ox O2 Delivery O2 Flow Rate FiO2 01/11/18 15:00 58 18 111/52 (71) 01/11/18 15:00 58 01/11/18 13:00 100 30 96/52 (67) 01/11/18 12:00 98.8 54 16 99/54 (69) 01/11/18 11:00 64 36 101/61 (74) 01/11/18 10:00 146 30 121/92 (102) 01/11/18 09:41 148 28 109/83 (92) 01/11/18 08:00 127 01/11/18 07:54 98.6 64 16 141/62 (88) 01/11/18 04:00 98.6 62 16 106/41 (62) 01/11/18 00:00 61 01/11/18 00:00 98.5 64 22 123/51 (75) 100 01/10/18 20:20 64 23 123/59 (80) 01/10/18 20:18 76 01/10/18 20:17 72 01/10/18 20:12 156 24 123/70 (87) 01/10/18 20:00 98.3 158 33 131/78 (95) 100 01/10/18 20:00 157 I/O 01/10/18 01/10/18 01/10/18 01/11/18 01/11/18 01/11/18 07:00 15:00 23:00 07:00 15:00 23:00 Intake Total 220 ml 68 ml 500 ml 220 ml Output Total 3 ml 3 ml Balance 220 ml 68 ml 497 ml 220 ml -3 ml Intake Oral 220 ml 500 ml 220 ml IV Total 68 ml Output Stool Total 3 ml 3 ml # Voids 3 3 3 # Bowel Movements 0 0 Result Diagram: 01/09/18 1615 01/10/18 0445 Imaging Alert, fully oriented Heart: S1, S2 regular, no gallop Abdomen: soft, no mass Ext: no edema Last Impressions Chest X-Ray 01/09/18 1603 Signed Impressions: Service Date/Time: January 16:29 - CONCLUSION: 1. Stable hyperinflation characteristic of some degree of COPD. 2. Stable pleural parenchymal scarring laterally and inferiorly in the left hemithorax. No superimposed acute infiltrate. Renaldo Felton MD Current Medications Medications (Trade) Dose Ordered Sig/Mic Route Start Time Stop Time Status Last Admin (NS Flush) 2 ml UNSCH PRN IV FLUSH 01/09/18 20:15 (NS Flush) 2 ml BID IV FLUSH 01/09/18 21:00 01/11/18 08:01 (Tylenol) 650 mg Q4H PRN PO 01/09/18 20:15 (Zofran Inj) 4 mg Q6H PRN IVP 01/09/18 20:15 (Heparin Inj) 5,000 units Q12HR SQ 01/09/18 21:00 01/11/18 08:00 (Narcan Inj) 0.4 mg UNSCH PRN IV PUSH 01/09/18 20:15 (Hailey-Colace) 1 tab BID PO 01/09/18 21:00 01/11/18 08:01 (Milk Of Magnesia Liq) 30 ml Q12H PRN PO 01/09/18 20:15 (Senokot) 17.2 mg Q12H PRN PO 01/09/18 20:15 (Dulcolax Supp) 10 mg DAILY PRN RECTAL 01/09/18 20:15 (Lactulose Liq) 30 ml DAILY PRN PO 01/09/18 20:15 (Ecotrin Ec) 81 mg DAILY PO 01/10/18 09:00 01/11/18 08:01 (Cozaar) 100 mg DAILY PO 01/10/18 09:00 01/11/18 08:01 (Microzide) 12.5 mg DAILY PO 01/10/18 09:00 01/11/18 08:00 (Cardizem Cd) 120 mg DAILY PO 01/11/18 09:00 01/11/18 08:01 (Vitamin D3) 400 units DAILY PO 01/11/18 09:00 01/11/18 08:01 (CeleXA) 20 mg DAILY PO 01/11/18 09:00 01/11/18 08:00 (Protonix) 20 mg DAILY PO 01/11/18 09:00 01/11/18 08:01 (Benadryl) 50 mg HS PRN PO 01/10/18 10:45 01/10/18 20:17 (Toprol Xl) 12.5 mg DAILY PO 01/11/18 09:00 01/11/18 09:36 Assessment and Plan Problem List: (1) Hypertension ICD Codes: I10 - Essential (primary) hypertension Plan: SBP 111 (2) Atrial fibrillation with RVR ICD Codes: I48.91 - Unspecified atrial fibrillation Status: Acute Plan: In sinus rhythm Atrial flutter with FVR on admission Yesterday night developed a new episode then converted back into sinus rhythm. Will nee GI evaluation for anticoagulation If cleared by GI then ablation can be considered Case discussed with the patient Can be DH if stable in AM Walker Guerra MD Jan 11, 2018 19:17
[2018-01-11] MEDS: diphenhydrAMINE HCL 50 MG CAP PO PRN (20:22)
[2018-01-12] VITALS: BP 120/55; PULSE 62; RESP 6; O2SAT 97
[2018-01-12 03:45] VITALS: BP 122/65; PULSE 60; RESP 21; TEMP 98.5; O2SAT 97
[2018-01-12 07:00] VITALS: PULSE 56
[2018-01-12 08:00] VITALS: BP 114/53; PULSE 56; PULSE 58; RESP 17; TEMP 98.3; O2SAT 97
[2018-01-12] MEDS ORDERED: DILT120C50 PO (08:45)
[2018-01-12] MEDS ORDERED: LEVO100T5 PO (08:45)
[2018-01-12] MEDS ORDERED: APIX5TAB PO (08:45)
--- NOTE | 2018-01-12 08:45 | HHI.DS ---
Discharge Summary Admission Date Jan 09, 2018 at 20:02 Discharge Date: Jan 12, 2018 Admitting Diagnosis Afib/RVR (1) Atrial fibrillation with RVR ICD Code: I48.91 - Unspecified atrial fibrillation Status: Acute (2) Hypothyroidism ICD Code: E03.9 - Hypothyroidism, unspecified Status: Acute (3) Hypertension ICD Code: I10 - Essential (primary) hypertension Procedures . Brief History - From Admission Written by Huyen Rosales, acting as scribe for Dr. Joy on 01/10/18 at 09:08. This is a pleasant 77-year-old female patient with a known medical history of rheumatoid arthritis, atrial fibrillation, hyperlipidemia and COPD who presented to the ED after evaluation at her PCP with a heart rate of 140. Patient states she went for her checkup and had no complaints or symptoms when her PCP checked her heart rate and it was 140. She states she's been in her relatively healthy state. Denies any illness cutting fever, chills, cough, abdominal pain, nausea, vomiting, diarrhea or dysuria. Denies any chest pain or palpitations. Patient states she is followed with Dr. Sewell in the past for history of atrial fibrillation, just saw her a few months ago with no changes in medicines. Patient's PCP is Dr. Marley. CBC/BMP: 01/09/18 1615 01/10/18 0445 Significant Findings Laboratory Tests Test 01/09/18 16:15 01/10/18 04:45 Hemoglobin 10.2 GM/DL (11.6-15.3) Hematocrit 32.3 % (35.0-46.0) Mean Corpuscular Volume 75.4 FL (80.0-100.0) Mean Corpuscular Hemoglobin 23.9 PG (27.0-34.0) Mean Corpuscular Hemoglobin Concent 31.6 % (32.0-36.0) Platelet Count 98 TH/MM3 (150-450) Platelet Estimate LOW (NORMAL) Creatinine 1.10 MG/DL (0.50-1.00) 1.10 MG/DL (0.50-1.00) Sodium Level 135 MEQ/L (136-145) Estimat Glomerular Filtration Rate 48 ML/MIN (>89) 48 ML/MIN (>89) Troponin I LESS THAN 0.02 NG/ML Thyroid Stimulating Hormone 3rd Gen 0.229 uIU/ML (0.358-3.740) Albumin 3.2 GM/DL (3.4-5.0) Triglycerides Level 407 MG/DL (42-150) HDL Cholesterol 27.9 MG/DL (40.0-60.0) Imaging Last Impressions Chest X-Ray 01/09/18 1603 Signed Impressions: Service Date/Time: January 16:29 - CONCLUSION: 1. Stable hyperinflation characteristic of some degree of COPD. 2. Stable pleural parenchymal scarring laterally and inferiorly in the left hemithorax. No superimposed acute infiltrate. Renaldo Felton MD PE at Discharge GENERAL: Well-nourished, well-developed patient in NAD. SKIN: Warm and dry. No rash. HEENT: Normocephalic. Atraumatic. Pupils equal and round. No scleral icterus. No injection or drainage. No nasal bleeding or discharge. Mucous membranes pink and moist. NECK: Supple. Trachea midline. CARDIOVASCULAR: Irregularly irregular rhythm. No murmur appreciated. RESPIRATORY: No accessory muscle use. Clear to auscultation. Breath sounds equal bilaterally. GASTROINTESTINAL: Abdomen soft, non-tender, nondistended. Normoactive bowel sounds x4. MUSCULOSKELETAL: No obvious deformities. Extremities without clubbing, cyanosis , or edema. NEUROLOGICAL: Awake and alert. No obvious cranial nerve deficits. Motor grossly within normal limits. 5/5 muscle strength in bilateral upper and lower extremities. Normal speech. PSYCHIATRIC: Appropriate mood and affect; insight and judgment normal. Pt update on day of discharge Follow-up A. fib RVR. Patient seen and examined, lying in bed comfortably. Pleasant and alert. No reports of any acute events overnight. Heart rate controlled. Blood pressure stable. Eager to go home. Creative Services Designer is seen patient with recommendations. Signs are stable. Afebrile. Hospital Course Patient presented with rapid atrial flutter. Was placed on Cardizem IV drip. Now on Cardizem PO. Started on metoprolol low-dose. Cardiology consulted and saw patient. Discharged off of carvedilol, digoxin and lidocaine and aspirin. Started on metoprolol and Cardizem ER. Chest pain and palpitations resolved. Hemoglobin A1c checked 5.4. TSH low, levothyroxine dose was decreased encouraged to follow-up with PCP upon discharge. Lipid panel reviewed showing elevated triglycerides. Continue home Raptha. Patient started on anticoagulation, does have a GI bleed hospitalization although records have been reviewed showing no significant from the colonoscopy and EGD report. Contacted GI with recommendations to start anticoagulation and follow-up outpatient. Orders have been written. Orders to have patient follow-up with cardiology upon discharge. Pt Condition on Discharge: Stable Discharge Disposition: Discharge Home Discharge Time: > 30 minutes Discharge Instructions DIET: Follow Instructions for: Heart Healthy Diet Speech Therapy-Diet Recommends: Regular Activities you can perform: Regular-No Restrictions Follow up Referrals: Cardiology - 1 Week Gastroenterology - 1 Week PCP Follow-up - 1 Week Follow TSH level, decreased levothyroxine dose New Medications: Levothyroxine (Levothyroxine) 100 Mcg Tab 100 MCG PO DAILY for Thyroid for 30 Days, #30 TAB 0 Refills Apixaban (Eliquis) 5 Mg Tab 5 MG PO BID for stroke prevention a fib for 30 Days, #60 TAB Diltiazem CD 24 HR (Diltiazem CD 24 HR) 120 Mg Caper 120 MG PO DAILY for a fib for 30 Days, #30 CAP Metoprolol Succinate ER 24 HR (Metoprolol Succinate ER 24 HR) 25 Mg Tab 12.5 MG PO DAILY for A FIB for 30 Days, #15 TAB PLEASE HOLD IF HEART RATE LESS THAN 65. Continued Medications: Cholecalciferol (Vitamin D-400) 400 Unit Tab 400 UNITS PO DAILY for Nutritional Supplement, #1 BOTTLE 0 Refills Citalopram (Citalopram) 20 Mg Tab 20 MG PO DAILY for Control Depression, #30 TAB 0 Refills Losartan-Hydrochlorothiazide (Hyzaar) 100-12.5 Mg Tab 1 TAB PO DAILY for Blood Pressure Management, #30 TAB 0 Refills Omeprazole (Omeprazole) 20 Mg Tab 20 MG PO DAILY, #30 TAB 0 Refills Tramadol (Tramadol) 50 Mg Tab 100 MG PO Q6H PRN for PAIN, TAB 0 Refills Discontinued Medications: Amlodipine (Amlodipine) 5 Mg Tab 5 MG PO DAILY for Blood Pressure Management, #30 TAB [address] (Aspirin EC) 81 Mg Tabdr 81 MG PO DAILY, TAB 0 Refills Carvedilol (Carvedilol) 3.125 Mg Tab 3.125 MG PO BID, #60 TAB 0 Refills Digoxin (Digoxin) 0.25 Mg Tab 0.25 MG PO DAILY for Regulate Heart Beat, #30 TAB 0 Refills Levothyroxine (Levothyroxine) 150 Mcg Tab 150 MCG PO DAILY for Thyroid, #30 TAB 0 Refills Huyen Rosales Jan 12, 2018 08:45
--- NOTE | 2018-01-12 08:47 | HHI.DCPOC ---
Discharge Care Plan Diagnosis: (1) History of GI bleed (2) Anticoagulated (3) Atrial fibrillation with RVR (4) Hypertension (5) Hypothyroidism Goals to Promote Your Health * To prevent worsening of your condition and complications * To maintain your health at the optimal level Directions to Meet Your Goals Take your medications as prescribed Follow your dietary instruction Follow activity as directed Keep your appointments as scheduled Take your immunizations and boosters as scheduled If your symptoms worsen call your PCP, if no PCP go to Urgent Care Center or Emergency Room Smoking is Dangerous to Your Health. Avoid second hand smoke Call the 24-hour hour crisis hotline for domestic abuse at Huyen Rosales Jan 12, 2018 08:47
[2018-01-12] MEDS: METOPROLOL SUCCINATE 25 MG EXTENDED RELEASE TAB PO SCH (09:00)
[2018-01-12] MEDS: HEPARIN SODIUM - SQ 10,000 UNITS/ML VIAL SQ SCH (09:00)
[2018-01-12] MEDS ORDERED: APIXABAN 5 MG TABLET PO SCH (09:00)
[2018-01-12] MEDS: CHOLECALCIFEROL (VIT D3) 400 UNIT TAB PO SCH (09:02)
[2018-01-12] MEDS: PANTOPRAZOLE SOD 20 MG DELAYED RELEASE TAB PO SCH (09:02)
[2018-01-12] MEDS: HYDROCHLOROTHIAZIDE 12.5 MG CAP PO SCH (09:02)
[2018-01-12] MEDS: DOCUSATE SODIUM 50 MG/SENNA 8.6 MG TAB PO SCH (09:02)
[2018-01-12] MEDS: ASPIRIN EC 81 MG TABEC PO SCH (09:02)
[2018-01-12] MEDS: CITALOPRAM HYDROBROMIDE 20 MG TAB PO SCH (09:03)
[2018-01-12] MEDS: DILTIAZEM-CD 120 MG CAP ER PO SCH (09:03)
[2018-01-12] MEDS: LOSARTAN 50 MG TAB PO SCH (09:03)
[2018-01-12] MEDS ORDERED: METO1TAB42 PO (09:13)
[2018-01-12 10:00] VITALS: PULSE 70
[2018-01-12] MEDS: SODIUM CHLORIDE 0.9% FLUSH 10 ML FLUSH IV FLUSH SCH (10:09)
[2018-01-12 12:00] VITALS: BP 117/56; PULSE 54; PULSE 60; RESP 36; TEMP 98.4; O2SAT 98
== END 2018-01-12 12:40 | disposition home or self-care (01) ==
LOC: PHED 15:57 → PHEDA 20:02 → PHICU 21:48
PROVIDERS: ADMIT Hospitalist; ATTEND Hospitalist
DX: I48.91 Unspecified atrial fibrillation (principal); I48.92 Unspecified atrial flutter; I35.0 Nonrheumatic aortic (valve) stenosis; I25.10 Atherosclerotic heart disease of native coronary artery without angina pectoris; I10 Essential (primary) hypertension; I25.2 Old myocardial infarction; E03.9 Hypothyroidism, unspecified; E78.5 Hyperlipidemia, unspecified; E78.1 Pure hyperglyceridemia; G47.30 Sleep apnea, unspecified; J44.9 Chronic obstructive pulmonary disease, unspecified; K21.9 Gastro-esophageal reflux disease without esophagitis; K74.60 Unspecified cirrhosis of liver; M06.9 Rheumatoid arthritis, unspecified; Z23 Encounter for immunization; Z86.74 Personal history of sudden cardiac arrest; Z85.42 Personal history of malignant neoplasm of other parts of uterus; Z90.710 Acquired absence of both cervix and uterus; Z87.891 Personal history of nicotine dependence
CPT/HCPCS: 71045; 80053; 80061; 80162; 83036; 83735; 84439; 84443; 84481; 84484; 85025; 85610; 85730; 93005; 96365; 96366; 96372; 99291; G0008; G0378; J1644; Q0163; Q2038; 90471; 90686